=== PATIENT | male | born 1990 | race Caucasian/White ===

== ENCOUNTER 2018-01-10 10:53 | Emergency (ER) | payer SELFPAY ==
[~2018-01-10] VITALS: Ht 180.3 cm; Wt 113.4 kg
[2018-01-10 10:59] VITALS: BP_SYST 130
[2018-01-10 11:18] VITALS: BP_SYST 130
== END 2018-01-10 11:15 ==
LOC: SED 10:53
DX: G62.9 Polyneuropathy, unspecified (principal); R03.0 Elevated blood-pressure reading, without diagnosis of hypertension
CPT/HCPCS: 99284